=== PATIENT | male | born 1990 | race Caucasian/White ===

== ENCOUNTER 2018-12-16 23:00 | Emergency (ER) | payer OTHER ==
[~2018-12-16] VITALS: Ht 180.3 cm; Wt 59.0 kg
[~2018-12-16 23:00] MED LIST: [UNRECOGNIZED DRUG - OTHER]
[2018-12-16] MEDS ORDERED: ASPI81CH PO (23:14)
[2018-12-17 01:18] LABS: BASOPHILS ABSOLUTE AUTO 0.03 K/mm3 (0.00-0.23); BASOPHILS PERCENT AUTO 1 % (0-2); EOSINOPHILS ABSOLUTE AUTO 0.12 K/mm3 (0.00-0.68); EOSINOPHILS PERCENT AUTO 2 % (0-6); Hematocrit 43.9 % (37.0-53.0); Hemoglobin 15.4 g/dL (13.5-17.5); IMMATURE GRAN ABSOLUTE AUTO 0.01 K/mm3 (0.00-0.10); IMMATURE GRAN PERCENT AUTO 0 % (0-1); LYMPHOCYTES ABSOLUTE AUTO 2.67 K/mm3 (0.84-5.20); LYMPHOCYTES PERCENT AUTO 41 % (21-46); MONOCYTES ABSOLUTE AUTO 0.52 K/mm3 (0.16-1.47); MONOCYTES PERCENT AUTO 8 % (4-13); Mean Corpuscular HGB 31.4 pg (26.0-34.0); Mean Corpuscular HGB Conc 35.1 g/dL (31.5-36.5); Mean Corpuscular Volume 90 fL (80-100); NEUTROPHILS PERCENT AUTO 48 % (41-73); Platelet Count 169 K/mm3 (150-400); RDW Coefficient Variation 11.4 % (11.7-14.2); RDW Standard Deviation 37.1 fL (35.1-46.3); White Blood Cell Count 6.45 K/mm3 (4.00-11.30)
[2018-12-17 01:32] LABS: Alanine Aminotransfer (ALT/SGP 46 U/L (12-78); Albumin, Blood 4.6 g/dL (3.4-5.0); Albumin/Globulin Ratio 1.5 (0.8-1.8); Alk Phos 74 U/L (50-136); Anion Gap 8 mmol/L (6-16); Aspartate Aminotrans (AST/SGOT 32 U/L (12-37); Bilirubin, Total 0.6 mg/dL (0.1-1.0); Blood Urea Nitrogen 20 mg/dL (8-24); Bun/Creatinine Ratio 21.3 (12.0-20.0); CO2, Blood 30 mmol/L (21-32); Calcium, Blood 8.9 mg/dL (8.5-10.1); Chloride, Blood 105 mmol/L (98-108); Creatinine, Blood 0.94 mg/dL (0.60-1.20); Glomerular Filtration Rate >60 (60-); Glucose, Blood 93 mg/dL (70-99); Potassium, Blood 3.8 mmol/L (3.5-5.5); Sodium, Blood 143 mmol/L (136-145); Total Protein, Blood 7.6 g/dL (6.4-8.2); Troponin I <0.015 ng/mL (0.000-0.040)
== END 2018-12-17 02:16 | disposition home or self-care (01) ==
LOC: ER 23:00
PROVIDERS: Emergency Medicine
DX: R00.2 Palpitations (principal); Z79.82 Long term (current) use of aspirin; Z87.891 Personal history of nicotine dependence
CPT/HCPCS: 36415; 71046; 80053; 84484; 85025; 85379; 93005; 93010; 96360; 99285-25; J7030

== ENCOUNTER 2019-05-18 17:27 | Emergency (ER) | payer OTHER ==
[~2019-05-18] VITALS: Ht 177.8 cm; Wt 61.2 kg
[~2019-05-18 17:27] MED LIST changes: +ASPI81CH PO
[2019-05-18] MEDS ORDERED: Percocet 5-3251 EACH PO (19:39)
[2019-05-18] MEDS ORDERED: Amoxicillin500 MG PO (19:39)
[2019-05-18] MEDS ORDERED: PAROEX473 ML MM (23:05)
== END 2019-05-18 20:00 | disposition home or self-care (01) ==
LOC: ER 17:27
DX: K04.7 Periapical abscess without sinus (principal); Z87.891 Personal history of nicotine dependence; Z79.82 Long term (current) use of aspirin
CPT/HCPCS: 41800; 99283-25; A9270

== ENCOUNTER 2019-07-27 22:50 | Emergency (ER) | payer OTHER ==
[~2019-07-27] VITALS: Ht 177.8 cm; Wt 63.5 kg
[~2019-07-27 22:50] MED LIST changes: +Amoxicillin500 MG PO; +PAROEX473 ML MM; +Percocet 5-3251 EACH PO
[2019-07-28] MEDS ORDERED: Tenormin25 MG PO (00:22)
== END 2019-07-28 00:49 | disposition home or self-care (01) ==
LOC: ER 22:50
DX: I49.3 Ventricular premature depolarization (principal); Z87.891 Personal history of nicotine dependence
CPT/HCPCS: 93005; 93010; 99283-25

== ENCOUNTER 2019-07-28 23:41 | Emergency (ER) | payer OTHER ==
[~2019-07-28] VITALS: Ht 177.8 cm; Wt 63.5 kg
[~2019-07-28 23:41] MED LIST changes: +Tenormin25 MG PO
== END 2019-07-29 00:25 | disposition home or self-care (01) ==
LOC: ER 23:41
DX: R53.1 Weakness (principal); T44.7X5A Adverse effect of beta-adrenoreceptor antagonists, initial encounter; F98.8 Other specified behavioral and emotional disorders with onset usually occurring in childhood and adolescence
CPT/HCPCS: 99282

== ENCOUNTER 2020-12-03 16:44 | Emergency (ER) | payer OTHER ==
[~2020-12-03] VITALS: Ht 180.3 cm; Wt 61.2 kg
[2020-12-03] MEDS ORDERED: Amoxicillin500 MG PO (17:05)
== END 2020-12-03 17:14 | disposition home or self-care (01) ==
LOC: ER 16:44
DX: K04.7 Periapical abscess without sinus (principal); Z87.891 Personal history of nicotine dependence
CPT/HCPCS: 99282

== ENCOUNTER 2021-04-17 12:06 | Day surgery (SDC) | payer OTHER ==
[~2021-04-17] VITALS: Ht 180.3 cm; Wt 62.4 kg
[~2021-04-17 12:06] MED LIST changes: +DOCU100 PO; +FAMO10 PO
== END 2021-04-17 13:55 | disposition home or self-care (01) ==
LOC: ORSCSDS 12:06
PROVIDERS: Student in an Organized Health Care Education/Training Program
PROC: 0DB98ZX Excision of Duodenum, Via Natural or Artificial Opening Endoscopic, Diagnostic (ICD-10-PCS; principal; 2021-04-17 14:00)
PROC: 0DB58ZX Excision of Esophagus, Via Natural or Artificial Opening Endoscopic, Diagnostic (ICD-10-PCS; principal; 2021-04-17 14:00)
PROC: 0DB68ZX Excision of Stomach, Via Natural or Artificial Opening Endoscopic, Diagnostic (ICD-10-PCS; principal; 2021-04-17 14:00)
PROC: 0DB48ZX Excision of Esophagogastric Junction, Via Natural or Artificial Opening Endoscopic, Diagnostic (ICD-10-PCS; principal; 2021-04-17 14:00)
DX: K21.9 Gastro-esophageal reflux disease without esophagitis (principal); R12 Heartburn; F41.9 Anxiety disorder, unspecified; Z87.891 Personal history of nicotine dependence; Z79.899 Other long term (current) drug therapy
CPT/HCPCS: 88305; 88342; J2250; J2704; J7120

== ENCOUNTER 2021-05-20 15:40 | Emergency (ER) | payer OTHER ==
[~2021-05-20] VITALS: Ht 180.3 cm; Wt 63.5 kg
[2021-05-20 16:23] LABS: BASOPHILS ABSOLUTE AUTO 0.02 K/mm3 (0.00-0.23); BASOPHILS PERCENT AUTO 0 % (0-2); EOSINOPHILS ABSOLUTE AUTO 0.05 K/mm3 (0.00-0.68); EOSINOPHILS PERCENT AUTO 1 % (0-6); Hematocrit 46.7 % (37.0-53.0); Hemoglobin 16.8 g/dL (13.5-17.5); IMMATURE GRAN ABSOLUTE AUTO 0.01 K/mm3 (0.00-0.10); IMMATURE GRAN PERCENT AUTO 0 % (0-1); LYMPHOCYTES ABSOLUTE AUTO 2.16 K/mm3 (0.84-5.20); LYMPHOCYTES PERCENT AUTO 36 % (21-46); MONOCYTES ABSOLUTE AUTO 0.46 K/mm3 (0.16-1.47); MONOCYTES PERCENT AUTO 8 % (4-13); Mean Corpuscular HGB 30.8 pg (26.0-34.0); Mean Corpuscular Volume 86 fL (80-100); NEUTROPHILS ABSOLUTE AUTO 3.35 K/mm3 (1.96-9.15); NEUTROPHILS PERCENT AUTO 55 % (41-73); Platelet Count 180 K/mm3 (150-400); RDW Coefficient Variation 11.5 % (11.7-14.2); RDW Standard Deviation 35.6 fL (35.1-46.3); Red Blood Cell Count 5.45 M/mm3 (4.30-5.90); White Blood Cell Count 6.05 K/mm3 (4.00-11.30)
[2021-05-20 16:43] LABS: Alanine Aminotransfer (ALT/SGP 31 U/L (12-78); Albumin, Blood 4.8 g/dL (3.4-5.0); Albumin/Globulin Ratio 1.2 (0.8-1.8); Alk Phos 83 U/L (50-136); Anion Gap 5 mmol/L (6-16); Aspartate Aminotrans (AST/SGOT 17 U/L (12-37); Bilirubin, Total 0.9 mg/dL (0.1-1.0); Blood Urea Nitrogen 17 mg/dL (8-24); Bun/Creatinine Ratio 16.8 (12.0-20.0); CO2, Blood 28 mmol/L (21-32); Calcium, Blood 9.5 mg/dL (8.5-10.1); Chloride, Blood 106 mmol/L (98-108); Creatinine, Blood 1.01 mg/dL (0.60-1.20); Globulin, Blood 3.9 g/dL (2.2-4.0); Glomerular Filtration Rate >60 (60-); Glucose, Blood 97 mg/dL (70-99); Potassium, Blood 3.9 mmol/L (3.5-5.5); Sodium, Blood 139 mmol/L (136-145); Total Protein, Blood 8.7 g/dL (6.4-8.2); Troponin I <0.015 ng/mL (0.000-0.040)
== END 2021-05-20 17:45 | disposition home or self-care (01) ==
LOC: ER 15:40
PROVIDERS: Physician Assistant
DX: I10 Essential (primary) hypertension (principal); R00.2 Palpitations; R07.89 Other chest pain
CPT/HCPCS: 71046; 80053; 83690; 83880; 84443; 84484; 85025; 93005; 93010; 99285-25

== ENCOUNTER 2022-04-19 18:57 | Emergency (ER) | payer OTHER ==
[~2022-04-19] VITALS: Ht 180.3 cm; Wt 63.5 kg
[2022-04-19] MEDS ORDERED: AMOCLA875 PO (19:45)
== END 2022-04-19 19:54 | disposition home or self-care (01) ==
LOC: ER 18:57
DX: K04.7 Periapical abscess without sinus (principal); Z79.899 Other long term (current) drug therapy; Z88.8 Allergy status to other drugs, medicaments and biological substances; Z87.891 Personal history of nicotine dependence
CPT/HCPCS: A9270